=== PATIENT | male | born 1965 | race Caucasian/White ===

== ENCOUNTER 2020-11-30 15:59 | Outpatient (CLI) | payer OTHER | END 2020-11-30 23:59 | disposition home or self-care (01) | LOC: RAD 15:59 | PROVIDERS: ATTEND Orthopaedic Surgery | DX: M25.561 Pain in right knee (principal) ==

== ENCOUNTER → 2020-12-08 | Outpatient (CLI) | payer OTHER | END | disposition home or self-care (01) | LOC: CFH 16:29 | PROVIDERS: ATTEND Orthopaedic Surgery | DX: S83.271A Complex tear of lateral meniscus, current injury, right knee, initial encounter (principal); M94.261 Chondromalacia, right knee; M71.21 Synovial cyst of popliteal space [Baker], right knee; M67.461 Ganglion, right knee; X58.XXXA Exposure to other specified factors, initial encounter; Y93.89 Activity, other specified; Y92.89 Other specified places as the place of occurrence of the external cause; Y99.8 Other external cause status ==